=== PATIENT | female | born 1980 | race Caucasian/White ===

== ENCOUNTER 2017-05-30 14:38 | Emergency (ER) | payer OTHER ==
[~2017-05-30] VITALS: Ht 152.4 cm; Wt 76.0 kg
[~2017-05-30 14:38] MED LIST: ADDERALL XR 2020 MG PO; ALDOMET500 MG PO; AMLODIPINE BESYL5 MG PO; CYCLOBENZAPRINE10 MG PO; CYTOMEL25 MCG PO; Chromagen, Feogen, M PO; HYDROCHLOROTHIA25 MG PO; HYDROCODON-ACE1 EAC7 PO; KEFLEX500 MG PO; LYRICA100 MG PO; LYRICA75 MG PO; METOPROLOL SUCC50 MG PO; MOTRIN800 MG PO; Motrin PO; NAPROSYN500 MG PO; OXYCODONE-APAP1 EAC6 PO; PRAVASTATIN SOD10 MG PO; PYRIDIUM200 MG PO; SERTRALINE HCL50 MG PO; SYNTHROID100 MCG PO; ZOVIRAX400 MG PO
[2017-05-30] MEDS ORDERED: NORCO 5/3251 TABLET PO (15:32)
[2017-05-30] MEDS ORDERED: SKELAXIN800 MG PO (15:34)
[2017-05-30 15:41] VITALS: BP 185/150
== END 2017-05-30 15:46 | disposition home or self-care (01) ==
LOC: EME 14:38
DX: S16.1XXA Strain of muscle, fascia and tendon at neck level, initial encounter (principal); X50.0XXA Overexertion from strenuous movement or load, initial encounter; Y93.89 Activity, other specified; Y92.008 Other place in unspecified non-institutional (private) residence as the place of occurrence of the external cause; F17.210 Nicotine dependence, cigarettes, uncomplicated
CPT/HCPCS: 99281; 99284

== ENCOUNTER 2017-06-06 21:00 | Emergency (ER) | payer OTHER ==
[~2017-06-06] VITALS: Ht 152.4 cm; Wt 77.2 kg
[~2017-06-06 21:00] MED LIST changes: +NORCO 5/3251 TABLET PO; +SKELAXIN800 MG PO
[2017-06-07] MEDS ORDERED: VALIUM5 MG PO (00:23)
[2017-06-07] MEDS ORDERED: NORCO 5/3251 TABLET PO (00:23)
[2017-06-07] MEDS ORDERED: PREDNISONE50 MG PO (00:24)
[2017-06-07 00:35] VITALS: BP 156/97
== END 2017-06-07 00:35 | disposition home or self-care (01) ==
LOC: EME 21:00
DX: S16.1XXA Strain of muscle, fascia and tendon at neck level, initial encounter (principal); X58.XXXA Exposure to other specified factors, initial encounter; R51 Headache; H53.149 Visual discomfort, unspecified; I10 Essential (primary) hypertension; Z87.891 Personal history of nicotine dependence
CPT/HCPCS: 72040; 99281; 99284

== ENCOUNTER 2017-10-14 13:03 | Emergency (ER) | payer OTHER ==
[~2017-10-14 13:03] MED LIST changes: +PREDNISONE50 MG PO; +VALIUM5 MG PO
== END 2017-10-14 14:06 | disposition left against medical advice (07) ==
LOC: EME 13:03
DX: Z53.21 Procedure and treatment not carried out due to patient leaving prior to being seen by health care provider (principal)

== ENCOUNTER 2017-11-30 07:53 | Emergency (ER) | payer OTHER ==
[~2017-11-30] VITALS: Ht 152.4 cm; Wt 78.6 kg
[2017-11-30 09:19] LABS: APPEARANCE SL.HAZY ((CLEAR)); BILIRUBIN NEGATIVE; BLOOD LARGE; COLOR YELLOW ((YELLOW)); GLUCOSE (STRIP) NEGATIVE; KETONES NEGATIVE; LEUKOCYTES NEGATIVE; NITRITE NEGATIVE; PROTEIN (STRIP) NEGATIVE; SPECIFIC GRAVITY 1.014 (1.000-1.030); UROBILINOGEN 0.2 MG/DL (0.2-1.0)
[2017-11-30 09:26] LABS: BACTERIA RARE /HPF; EPITHELIAL CELLS 1+ /HPF; MUCUS TRACE /LPF; RED BLOOD CELLS 40-50 /HPF (0-5); UCUL ADDED? YES
[2017-11-30] MEDS ORDERED: CIPRO500 MG PO (09:49)
[2017-11-30] MEDS ORDERED: MOTRIN800 MG PO (09:49)
[2017-11-30 09:54] VITALS: BP 153/91
== END 2017-11-30 09:55 | disposition home or self-care (01) ==
LOC: EME 07:53
DX: N39.0 Urinary tract infection, site not specified (principal); M77.8 Other enthesopathies, not elsewhere classified; M25.521 Pain in right elbow; M25.511 Pain in right shoulder; E03.9 Hypothyroidism, unspecified; I10 Essential (primary) hypertension; Z87.440 Personal history of urinary (tract) infections; F17.200 Nicotine dependence, unspecified, uncomplicated
CPT/HCPCS: 73080; 81003; 87086; 99281; 99283

== ENCOUNTER 2018-03-16 23:00 | Emergency (ER) | payer OTHER ==
[~2018-03-16] VITALS: Ht 152.4 cm; Wt 74.0 kg
[~2018-03-16 23:00] MED LIST changes: +CIPRO500 MG PO
[2018-03-17 00:12] LABS: APPEARANCE CLOUDY ((CLEAR)); BILIRUBIN NEGATIVE; BLOOD MODERATE; COLOR YELLOW ((YELLOW)); GLUCOSE (STRIP) NEGATIVE; KETONES NEGATIVE; LEUKOCYTES LARGE; NITRITE NEGATIVE; PROTEIN (STRIP) 30; SPECIFIC GRAVITY 1.021 (1.000-1.030); UROBILINOGEN 0.2 MG/DL (0.2-1.0)
[2018-03-17 00:19] LABS: BACTERIA RARE /HPF; EPITHELIAL CELLS RARE /HPF; MUCUS TRACE /LPF; RED BLOOD CELLS TNTC /HPF (0-5); UCUL ADDED? YES; WHITE BLOOD CELLS TNTC /HPF (0-5)
[2018-03-17] MEDS ORDERED: MACROBID100 MG PO (00:30)
[2018-03-17] MEDS ORDERED: PYRIDIUM200 MG PO (00:30)
[2018-03-17] MEDS ORDERED: FLUCONAZOLE150 MG PO (00:30)
[2018-03-17 01:36] VITALS: BP 148/98
== END 2018-03-17 01:36 | disposition home or self-care (01) ==
LOC: EME 23:00
PROVIDERS: Emergency Medicine
DX: N30.01 Acute cystitis with hematuria (principal); B96.20 Unspecified Escherichia coli [E. coli] as the cause of diseases classified elsewhere; Z16.11 Resistance to penicillins; Z16.29 Resistance to other single specified antibiotic; F17.200 Nicotine dependence, unspecified, uncomplicated; Z87.440 Personal history of urinary (tract) infections; Z88.8 Allergy status to other drugs, medicaments and biological substances
CPT/HCPCS: 81003; 81025; 87077; 87086; 87186; 99281; 99284